=== PATIENT | female | born 1950 | race African-American/Black ===

== ENCOUNTER 2018-04-25 23:49 | Emergency (ER) | payer OTHER ==
[~2018-04-25] VITALS: Ht 157.5 cm; Wt 53.5 kg
[2018-04-25] MEDS ORDERED: METHOCARBAMOL500 M2 PO (23:56)
[2018-04-25] MEDS ORDERED: [UNRECOGNIZED DRUG - OTHER] PO (23:57)
[2018-04-25] MEDS ORDERED: HYDROCODONE-AP1 EAC6 PO (23:57)
[2018-04-25] MEDS ORDERED: NORVASC5 MG PO (23:58)
[2018-04-25] MEDS ORDERED: PAXIL10 MG PO (23:58)
[2018-04-25] MEDS ORDERED: COZAAR 25 MG TA25 MG PO (23:58)
[2018-04-26] MEDS ORDERED: NORCO 5-325 TA1 EACH PO (01:24)
[2018-04-26 02:15] VITALS: BP 142/81
== END 2018-04-26 02:27 | disposition home or self-care (01) ==
LOC: ER
DX: S82.492A Other fracture of shaft of left fibula, initial encounter for closed fracture (principal); S92.352A Displaced fracture of fifth metatarsal bone, left foot, initial encounter for closed fracture; I10 Essential (primary) hypertension; M32.9 Systemic lupus erythematosus, unspecified; Z88.0 Allergy status to penicillin; Z88.2 Allergy status to sulfonamides; Z88.5 Allergy status to narcotic agent; X50.3XXA Overexertion from repetitive movements, initial encounter; Y93.89 Activity, other specified; Y92.89 Other specified places as the place of occurrence of the external cause; Y99.8 Other external cause status

== ENCOUNTER 2020-05-21 03:47 | Emergency (ER) | payer MEDICARE, OTHER ==
[~2020-05-21] VITALS: Ht 157.5 cm; Wt 56.7 kg
[~2020-05-21 03:47] MED LIST: COZAAR 25 MG TA25 MG PO; HYDROCODONE-AP1 EAC6 PO; METHOCARBAMOL500 M2 PO; NORCO 5-325 TA1 EACH PO; NORVASC5 MG PO; PAXIL10 MG PO; [UNRECOGNIZED DRUG - OTHER] PO
[2020-05-21] MEDS ORDERED: LIPITOR 20 MG T20 M1 PO (03:54)
[2020-05-21] MEDS ORDERED: MOBIC15 MG PO (05:32)
[2020-05-21 05:48] VITALS: BP 145/83
== END 2020-05-21 05:49 | disposition home or self-care (01) ==
LOC: ER 03:47
DX: M79.672 Pain in left foot (principal); I10 Essential (primary) hypertension; Z79.899 Other long term (current) drug therapy; Z88.0 Allergy status to penicillin; Z88.5 Allergy status to narcotic agent; Z88.2 Allergy status to sulfonamides